=== PATIENT | female | born 1960 | race Caucasian/White ===

== ENCOUNTER 2018-10-20 16:08 | Emergency (ER) | payer SELFPAY ==
[2018-10-20 16:22] VITALS: RESP 18
[2018-10-20 16:24] VITALS: BMI 24.7
[2018-10-20] MEDS ORDERED: Sodium Chloride 0.9% 1,000 ML IV STA (16:37)
--- NOTE | 2018-10-20 16:41 | ED PDOC ---
History of Present Illness History of Present Illness: 57 y/o female with no significant PMH presents to the ED c/o cough, generalized myalgias, and tactile fever x 4 days. Cough is productive of white sputum. Associated loose stools and mild frontal headache. Tolerating PO per baseline. States she received her flu shot this year. Denies chest pain, SOB, abdominal pain, vomiting, vision changes, dizziness, syncope, palpitations, urinary sympt oms, or any other associated symptoms. HPI: Influenza Time Seen by Provider: 10/20/18 16:30 Chief Complaint: Cough, Cold, Congestion History Per: Patient Exam Limitations: no limitations Have you had recent travel within the past 21 days to any of the following countries: [place], [place], [place] or [place]?: No Onset/Duration Of Symptoms: Days Symptoms include: fever, headache, bodyaches, sore throat, cough, nasal congestion, diarrhea Sick Contacts (Context): None Hx Influenza Vaccination: Yes Past Medical History - Infectious Disease Hx of Infectious Diseases: None - Tetanus Immunization Tetanus Immunization: Unknown - Past Medical History Past Medical History: No Previous - Psychiatric Hx Depression: No Hx Emotional Abuse: No Hx Physical Abuse: No Hx Substance Use: No - Surgical History Hx Section: Yes Hx Cholecystectomy: Yes - Anesthesia Hx Anesthesia: Yes Hx Anesthesia Reactions: No Hx Malignant Hyperthermia: No - Suicidal Assessment Feels Threatened In Home Enviroment: No Patient Medical History - Infectious Disease Hx of Infectious Diseases: None - Tetanus Immunizations Tetanus Immunization: Unknown Hx Cholecystectomy: Yes - Past Medical History Past Medical History: No Previous - Psychiatric History Feels Threatened In Home Enviroment: No Hx Physical Abuse: No Hx Emotional Abuse: No Hx Depression: No Family/Social History - Physician Review Nursing Documentation Reviewed: Yes Family/Social History: No Known Family HX Smoking Status: Never Smoked Hx Alcohol Use: No Hx Substance Use: No Hx Substance Use Treatment: No Allergies/Home Meds Allergies/Adverse Reactions: Allergies No Known Allergies Allergy (Verified 01/28/13 18:20) Review of Systems - Physician Review All systems were reviewed & negative as marked: Yes - Review of Systems Constitutional: Fatigue, Fevers Eyes: Normal. absent: Vision Changes, Eye Pain ENT: Normal. absent: Hearing Changes, Sinus Congestion Respiratory: Normal, Cough, Sputum Cardiovascular: Normal. absent: Chest Pain, Palpitations, Orthopnea, Syncope Gastrointestinal: Stool Changes (loose brown stool), Nausea. absent: Abdominal Pain, Vomiting, Appetite Changes Genitourinary Female: Normal Musculoskeletal: Normal Skin: Normal. absent: Rash Neurological: Headache. absent: Dizziness, Gait Changes, Disequilibrium Endocrine: Normal Hemo/Lymphatic: Normal. absent: Adenopathy Psychiatric: Normal Physical Exam Vital Signs Reviewed: Yes Vital Signs Temp Pulse Resp BP Pulse Ox 10/20/18 16:21 98.9 F 98 H 18 110/58 L 97 Temperature: Afebrile Blood Pressure: Normal Pulse: Regular Respiratory Rate: Normal Appearance: Positive for: Well-Appearing, Non-Toxic, Comfortable Pain Distress: None Mental Status: Positive for: Alert and Oriented X 3 - Systems Exam Head: Present: Atraumatic, Normocephalic Pupils: Present: PERRL Extroacular Muscles: Present: EOMI Conjunctiva: Present: Normal Mouth: Present: Moist Mucous Membranes Neck: Present: Normal Range of Motion Respiratory/Chest: Present: Clear to Auscultation, Good Air Exchange. No: Respiratory Distress, Accessory Muscle Use Cardiovascular: Present: Regular Rate and Rhythm, Normal S1, S2. No: Murmurs Abdomen: No: Tenderness, Distention, Peritoneal Signs Back: Present: Normal Inspection Upper Extremity: Present: Normal Inspection. No: Cyanosis, Edema Lower Extremity: Present: Normal Inspection. No: Edema Neurological: Present: GCS=15, CN II-XII Intact, Speech Normal Skin: Present: Warm, Dry, Normal Color. No: Rashes Psychiatric: Present: Alert, Oriented x 3, Normal Insight, Normal Concentration Medical Decision Making ED Course and Treatment: Initial Plan: * CBC, CMP * UA * Strep, Flu * EKG * CXR * IVF Strep: neg Flu: neg CBC: wnl CMP: wnl UA: moderate hematuria, consistent with prior UA CXR: no active disease as read by me and ED attending Dr. Banda On re-evaluation, patient is resting comfortably in stretcher. Reports feeling much better after IV fluids with associated resolution of headache. Plan of care discussed with patient, and strict instructions given regarding prescriptions, importance of follow up, and signs to return to Emergency Department, to include fever, chills, vomiting, worsening cough or any other new/worsening symptoms. Patient verbalizes understanding of discussion. Patient A&Ox3, ambulating with steady gait, stable for discharge home. - Lab Interpretations Lab Results: 10/20/18 17:12 10/20/18 17:12 Lab Results 10/20/18 20:07: Urine Color Yellow, Urine Appearance Clear, Urine pH 6.5, Ur Specific [place] 1.015, Urine Protein Negative, Urine Glucose (UA) Neg, Urine Ketones Negative, Urine Blood Moderate H, Urine Nitrate Negative, Urine Bilirubin Negative, Urine Urobilinogen 0.2, Ur Leukocyte Esterase Neg, Urine RBC 1 - 3, Urine WBC Negative, Ur Epithelial Cells None, Urine Bacteria Neg 10/20/18 18:30: Influenza Typ A,B (EIA) Negative for flu a/b, Grp A Beta Strep Ag Negative 10/20/18 17:12: Sodium 139, Potassium 3.8, Chloride 105, Carbon Dioxide 27, Anion Gap 12, BUN 13, Creatinine 0.7, Est GFR ( Amer) > 60, Est GFR (Non- Af Amer) > 60, Random Glucose 142 H, Calcium 8.9, Total Bilirubin 0.3, AST 31, ALT 31, Alkaline Phosphatase 67, Total Protein 7.5, Albumin 4.1, Globulin 3.4, Albumin/Globulin Ratio 1.2 10/20/18 17:12: WBC 8.0, RBC 4.79, Hgb 13.5, Hct 40.9, MCV 85.4, MCH 28.2, MCHC 33.0, RDW 13.1, Plt Count 228, MPV 9.1, Gran % 73.2 H, Lymph % (Auto) 16.6 L, Luce % (Auto) 8.2 H, Eos % (Auto) 1.5, Baso % (Auto) 0.5, Gran # 5.86, Lymph # (Auto) 1.3, Luce # (Auto) 0.7 H, Eos # (Auto) 0.1, Baso # (Auto) 0.04 I have reviewed the lab results: Yes - RAD Interpretation Narrative RAD Interpretations (Text): CXR: no active disease Radiology Orders: 10/20/18 16:38 CXR (PA/LAT) [CHEST TWO VIEWS (PA/LAT)] [RAD] [employer]inator: ED Physician (Dr. Banda) - EKG Interpretation EKG Interpretation (Text): rate 90; NSR; normal intervals; no STEMI Interpreted by ED Physician: Yes Type: 12 lead EKG - Medication Orders Current Medication Orders: Sodium Chloride (Sodium Chloride 0.9%) 1,000 mls @ 999 mls/hr IV .Q1H1M STA Stop: 10/20/18 17:37 Disposition/Present on Arrival - Present on Arrival Any Indicators Present on Arrival: No History of DVT/PE: No History of Uncontrolled Diabetes: No Urinary Catheter: No History of Decub. Ulcer: No History Surgical Site Infection Following: None - Disposition Have Diagnosis and Disposition been Completed?: Yes Diagnosis: Upper respiratory infection, Pharyngitis Disposition: HOME/ ROUTINE Disposition Time: 20:15 Patient Plan: Discharge Condition: IMPROVED Discharge Instructions (ExitCare): Blood in the Urine (Hematuria) in Adults, Bacterial Upper Respiratory Infection, Adult Additional Instructions: Increase fluids Take antibiotic as prescribed Robitussin for cough Tylenol/Motrin for fever Followup with primary within 2 days Return to ER for any new/worsening symptoms Prescriptions: Azithromycin [Z-Jd] 250 mg PO DAILY #6 tab guaiFENesin [Robitussin] 200 mg PO Q12H PRN #1 bottle PRN Reason: Cough Referrals: Indy Morillo MD [Primary Care Provider] - Follow up with primary Forms: [employer] ([place])
[2018-10-20 17:22] LABS: BASO # 0.04 K/mm3 (0.0-2.0); BASO % 0.5 % (0.0-3.0); EOS # 0.1 (0.0-0.7); EOS % 1.5 % (1.5-5.0); GRAN # 5.86 (1.4-6.5); GRAN % 73.2 % (50.0-68.0); HEMOGLOBIN 13.5 g/dL (12.0-16.0); LYMPH # 1.3 (1.2-3.4); LYMPH % 16.6 % (22.0-35.0); MEAN CELL VOLUME 85.4 fl (80.0-105.0); MEAN CORPUSCULAR HEMOGLOBIN 28.2 pg (25.0-35.0); MEAN PLATELET VOLUME 9.1 fl (7.0-11.0); MONO # 0.7 (0.1-0.6); MONO % 8.2 % (1.0-6.0); RBC 4.79 10^6/uL (3.5-6.1); RED CELL DISTRIBUTION WIDTH 13.1 % (11.5-14.5)
[2018-10-20 17:33] LABS: ALB/GLOB RATIO 1.2 (1.1-1.8); ALBUMIN 4.1 g/dL (3.0-4.8); ALT/SGPT 31 U/L (7-56); AST/SGOT 31 U/L (14-36); BLOOD UREA NITROGEN 13 mg/dL (7-21); CALCIUM 8.9 mg/dL (8.4-10.5); GFR NON-AFRICAN AMERICAN > 60
[2018-10-20] MEDS ORDERED: Sodium Chloride 0.9% 1,000 ML IV SCH (18:15)
[2018-10-20 19:09] LABS: INFLUENZA A B NEGATIVE FOR FLU A/B (NEGATIVE)
[2018-10-20 19:21] VITALS: PULSE 85; TEMP 98.9
--- NOTE | 2018-10-20 20:20 | CARD ---
APPROVED REPORT Date of service: 10/20/2018 EKG Measurement Heart [id number] <Conclusion> Normal sinus rhythm Low voltage QRS Borderline ECG
[2018-10-20 20:24] LABS: URINE APPEARANCE CLEAR (CLEAR); URINE BILIRUBIN NEGATIVE (NEGATIVE); URINE COLOR YELLOW (YELLOW); URINE GLUCOSE (UA) NEG (NEGATIVE)
[2018-10-20 20:25] LABS: PH,URINE 6.5 (4.7-8.0); URINE BLOOD MODERATE (NEGATIVE); URINE LEUKOCYTE ESTERASE NEG Leu/uL (NEGATIVE); URINE PROTEIN NEGATIVE mg/dL (<30 mg/dL); URINE UROBILINOGEN 0.2 E.U./dL (<1 E.U./dL)
[2018-10-20 20:27] LABS: URINE BACTERIA NEG (NEG); URINE WBC NEGATIVE /hpf (0-6)
[2018-10-20 20:56] VITALS: BP 118/70; O2SAT 97
--- NOTE | 2018-10-21 08:15 | RAD ---
Date of service: 10/20/2018 HISTORY: r/o PNA COMPARISON: 07/24/2012 TECHNIQUE: Chest PA and lateral FINDINGS: LUNGS: No active pulmonary disease. PLEURA: No significant pleural effusion identified. No pneumothorax apparent. CARDIOVASCULAR: No aortic atherosclerotic calcification present. Normal cardiac size. No pulmonary vascular congestion. OSSEOUS STRUCTURES: No significant abnormalities. VISUALIZED UPPER ABDOMEN: Normal. OTHER FINDINGS: None. IMPRESSION: No active disease.
== END 2018-10-20 20:56 | disposition home or self-care (01) ==
LOC: ED 16:08
DX: J06.9 Acute upper respiratory infection, unspecified (principal); J02.9 Acute pharyngitis, unspecified
CPT/HCPCS: 71046; 80053; 81001; 85025; 87070; 87086; 87430; 87804; 93005; 96360; 99285; J7030